=== PATIENT | female | born 1955 | race African-American/Black ===

== ENCOUNTER → 2020-04-21 | Outpatient (CLI) | payer MEDICAID ==
[~2020-04-21] MED LIST: ACTOS 15MG TAB15 MG PO; ASPIRIN 81M81 MG/TA2 PO; COZAAR 50MG50 MG/TAB PO; GLUCOPHAGE1000 MG PO; GLUCOTROL10 MG PO; LIPITOR 40MG TA40 MG PO; NORVASC 5MG5 MG/TAB PO; ULTRAM 50MG TAB50 MG PO
== END ==
LOC: MC.RAD 13:00
DX: N63.10 Unspecified lump in the right breast, unspecified quadrant (principal)

== ENCOUNTER → 2020-05-26 | Outpatient (CLI) | payer MEDICAID | LOC: MC.RAD 09:56 | DX: R92.8 Other abnormal and inconclusive findings on diagnostic imaging of breast (principal); Z98.82 Breast implant status ==

== ENCOUNTER 2020-08-11 06:30 | Day surgery (SDC) | payer MEDICAID ==
[~2020-08-11] VITALS: Ht 162.6 cm; Wt 128.7 kg
[2020-08-11] MEDS ORDERED: COZAAR 50MG50 MG/TAB PO (10:34)
[2020-08-11] MEDS ORDERED: NORVASC 5MG5 MG/TAB PO (10:36)
[2020-08-11] MEDS ORDERED: ACTOS 15MG TAB15 MG PO (10:37)
[2020-08-11] MEDS ORDERED: GLUCOTROL10 MG PO (10:37)
[2020-08-11] MEDS ORDERED: GLUCOPHAGE1000 MG PO (10:39)
[2020-08-11] MEDS ORDERED: LIPITOR 40MG TA40 MG PO (10:40)
[2020-08-11] MEDS ORDERED: ASPIRIN 81M81 MG/TA2 PO (10:40)
[2020-08-11 11:14] VITALS: BP 154/71; PULSE 85; TEMP 97.7
[2020-08-11] MEDS ORDERED: ULTRAM 50MG TAB50 MG PO (14:50)
[2020-08-11 15:30] VITALS: BP 127/60; PULSE 77; TEMP 97.9
--- NOTE | 2020-08-11 15:30 | NUR ---
Patient returned to bay [facility] via cart. Patient alert, but drowsy. Postop vital signs started. Patient request muffin and water. Daughter brought to bedside to be with patient.
[2020-08-11 15:45] VITALS: BP 138/43; PULSE 83
--- NOTE | 2020-08-11 15:45 | NUR ---
Patient is sitting up comfortably in bed. Patient is tolerateing food and water well. Vital signs stable. Daughter at bedside.
[2020-08-11 16:00] VITALS: BP 149/57; PULSE 79
--- NOTE | 2020-08-11 16:00 | NUR ---
Patients vital signs remain stable. Patient request to get up to bathroom, ambulated with steady gait. Small, bright red area noticed at incision site. CHIEF OF [employer]PERATIONS confirmed this was consistant with her assessment in PACU and there has been no change. Patient and daughter verbalized understanding to keep area clean and dry. patient and daughter verbalized understanding of all discharge instructions and follow-up appointment. D/C IV, with no complications. Instructed patient to dress and then call for transfer.
--- NOTE | 2020-08-11 16:15 | NUR ---
Transfered patient via wheelchair with daughter down to personal vehicle.
== END 2020-08-11 16:45 ==
LOC: SDCO 06:30
DX: C50.911 Malignant neoplasm of unspecified site of right female breast (principal); C77.3 Secondary and unspecified malignant neoplasm of axilla and upper limb lymph nodes; Z17.0 Estrogen receptor positive status [ER+]; E11.9 Type 2 diabetes mellitus without complications; M19.90 Unspecified osteoarthritis, unspecified site; I10 Essential (primary) hypertension; E03.9 Hypothyroidism, unspecified; E66.01 Morbid (severe) obesity due to excess calories; F17.210 Nicotine dependence, cigarettes, uncomplicated; Z79.899 Other long term (current) drug therapy
CPT/HCPCS: A4648; A9541; J0690; J2250; J2405; J2704; J2795; J3010; J7030; J7050

== ENCOUNTER → 2020-10-06 | Outpatient (CLI) | payer MEDICAID | LOC: COL.VAS 09-30 14:15 | DX: Z01.810 Encounter for preprocedural cardiovascular examination (principal); C50.211 Malignant neoplasm of upper-inner quadrant of right female breast; I31.3 Pericardial effusion (noninflammatory) ==